=== PATIENT | female | born 1945 | race Caucasian/White ===

== ENCOUNTER 2019-10-07 07:56 | Outpatient (CLI) | payer MEDICARE, OTHER, SELFPAY ==
--- NOTE | 2019-10-18 11:33 | SLEEP_ITS ---
Home Sleep Test DATE OF STUDY: 10/07/2019 ORDERING PHYSICIAN: Dr. Onel March. REASON FOR THE STUDY: Excessive daytime sleepiness with hypertension, snoring. HISTORY: This patient is a 74-year-old female, 5 feet 7 inches tall, weighing 254 pounds with a body mass index of 39.7. She did not complete a sleep survey. Reviewing Dr. March note indicates that the patient has multiple medical issues, including hypertension and depression. She has loud snoring and is sleepy during the daytime. The specifics of her sleep history are not available. MEDICAL COMORBIDITIES: Hypertension, essential tremor, hyperlipidemia, chronic depression, coronary artery disease, abnormal fasting glucose, chronic neck pain, chronic low back pain, fibromyalgia with limited mobility. MEDICATIONS: 1. Lyrica. 2. Cymbalta. 3. Previous medication list not available. HABITS: Never smoked tobacco. DESCRIPTION OF THE STUDY: On the [place] Sleepiness Scale, she has not completed it. This was conducted as an unattended type 3 home sleep test using 4-channel monitoring including respiratory effort channel, snoring channel, oxygen desaturation channel, and heart rate channel. The study was scored using CMS guidelines. Duration of the study was 8 hours 3 minutes. The apnea-hypopnea index is 40.8, elevated. Oxygen desaturation index is 31.5. Minimum saturation 45%. The mean saturation for the study was 93%. She had 178 apneas, the majority were obstructive, 84% or 149 apneas. 29 apneas were central or 16%. She had 150 hypopneas and 148 snoring events. She desaturated 246 times and spent 16 minutes or 3% of the time less than 88% saturation. Heart rate ranged from 48 to 197, that is probably spurious. IMPRESSION: This home sleep test shows evidence of severe obstructive sleep apnea syndrome G47.33, mainly obstructive events with frequent snoring, desaturation and tachycardia. She remained less than 88% saturation for 16 minutes, which was 3% of the study. This patient should have a CPAP titration. It would also be beneficial if she completed the survey. Reviewing Dr. March note, it does indicate that the patient has a history of sleep apnea, uses CPAP every night and has been diagnosed for over 20 years. She needs a full face mask. She has gained 20 pounds in the last year. She sleeps 12-14 hours per day and still feels sleepy. She does have some central apneas. She has multiple medical comorbidities and a low average saturation of 93%. She may benefit from a CPAP titration rather than auto titrating equipment. TIM CAMERON M.D. NC MACHINIST NC MACHINIST D I MT: Simin
== END 2019-10-07 07:57 | disposition home or self-care (01) ==
LOC: ANHCSM 07:59
PROVIDERS: PCP Family Medicine; Visit Provider Family Medicine
DX: G47.33 Obstructive sleep apnea (adult) (pediatric) (principal)
CPT/HCPCS: 95806

== ENCOUNTER 2020-04-07 00:42 | Outpatient (CLI) | payer MEDICARE, OTHER, SELFPAY ==
[2020-04-08 13:40] LABS: SARS-CoV-2 RNA PCR Negative
== END 2020-04-07 00:43 | disposition home or self-care (01) ==
LOC: ANHCOVIDDT 00:43
PROVIDERS: PCP Family Medicine; Visit Provider Internal Medicine Critical Care Medicine
DX: Z01.812 Encounter for preprocedural laboratory examination (principal); Z20.828 Contact with and (suspected) exposure to other viral communicable diseases
CPT/HCPCS: 87635; C9803; U0003

== ENCOUNTER 2020-04-10 07:46 | Outpatient (CLI) | payer MEDICARE, OTHER, SELFPAY ==
--- NOTE | 2020-04-27 01:11 | SLEEP_ITS ---
CPAP TITRATION DATE OF STUDY: 04/10/2020 ORDERING PHYSICIAN: Onel March MD REASON FOR THE STUDY: Obstructive sleep apnea. HISTORY: This patient is a 74-year-old female, 67 inches tall, 230 pounds with a body mass index of 36. On October 07, 2019, she had a home sleep test showing severe obstructive sleep apnea syndrome with an apnea-hypopnea index of 40.8, profound desaturation to 45% with loud snoring. She had a saturation of less than 88% for 16 minutes. She gives a history of sleep apnea and has used a machine for many years. She constantly snores and it is frequently loud enough that others complain about it. She does not awaken at night with heartburn, belching, or coughing. She occasionally has trouble sleeping with a cold, rarely wakes up gasping for breath at night. She frequently has breathing problems at night observed by others, frequently sweats at night. She does not notice her heart pounding or beating irregularly at night. She rarely falls asleep during the day. She does not fall asleep involuntarily, while driving or during physical effort. She does not have loss of muscle tone with strong emotion. She rarely has daytime difficulties due to excessive sleepiness. She does not feel paralyzed on waking or falling asleep. She frequently has vivid dreamlike scenes upon awakening or falling asleep. She is never afraid to go to sleep. She rarely has nightmares, occasionally remembers her dreams. She constantly has racing thoughts. She does not feel sad, depressed, or anxious, but she does have fibromyalgia and this gives her muscle discomfort. She rarely notices parts of her body jerking and she never kicks at night. She rarely has crawly achy feelings in her legs. Does not have leg pain at night and does not have morning jaw pain. She never grinds her teeth at night. She constantly is bothered by pain during the day. She constantly wakes up feeling stiff in the morning with sore achy muscles and pain in the neck and spine. She has 6 rods in her back. She has short-term memory loss, tremors. Bedtime is between midnight and 2 a.m., falling asleep within 20-30 minutes, waking up at a variable time depending on when she goes to sleep, but usually around 10 a.m. She does wake at night to go to the bathroom. She does not take naps. She feels better in the morning than other times of day. MEDICAL COMORBIDITIES: Hyperlipidemia, depression, fibromyalgia, diabetes mellitus, hypertension, essential tremors, acid reflux. MEDICATIONS: 1. Lipitor 40 mg a day. 2. Cymbalta 60 mg 2 tablets daily. 3. Pregabalin 75 mg b.i.d. 4. Propranolol ER 80 mg daily. 5. Myorisan 30 mg b.i.d. 6. Accutane 30 mg every other day. 7. Metformin XR 500 mg 2 tablets b.i.d. 8. Telmisartan/hydrochlorothiazide 12.5/80 mg 1 daily. 9. Rosuvastatin 20 mg a day. 10. Medical marijuana. 11. Zerz-mgs-waxueiq baby aspirin. 12. Eye drops. 13. Vitamin D3. 14. Vitamin B12. HABITS: Quit tobacco years ago. Caffeine, 1 cup a day. Alcohol socially. No recreational drugs, but she does use medical marijuana. DESCRIPTION OF THE STUDY: On the [place] Sleepiness Scale, the score is 13. This was conducted as a full-night CPAP titration using the [place] multiple channel system including EOG, EEG, submental EMG, EKG, nasal and oral airflow using thermistors and nasal pressure sensors, chest and abdominal belts, body position data and pulse oximetry. This study was scored using [facility] guidelines. The duration of the study was 405.1 minutes. The sleep time was 357.2 minutes. Sleep efficiency was 88.2%. Sleep latency was 29.4 minutes. She had no REM. She had 17 awakenings. She spent 4.5% of the study awake after sleep onset. Sleep architecture showed 4.5% stage I sleep, 90.6% sta
== END 2020-04-10 07:47 | disposition home or self-care (01) ==
LOC: ANHCSM 07:47
PROVIDERS: PCP Family Medicine; Visit Provider Family Medicine
DX: G47.33 Obstructive sleep apnea (adult) (pediatric) (principal)
CPT/HCPCS: 95811

== ENCOUNTER 2020-05-09 00:16 | Outpatient (CLI) | payer MEDICARE, OTHER, SELFPAY ==
[2020-05-09 19:00] LABS: SARS-CoV-2 RNA PCR Negative
== END 2020-05-09 00:17 | disposition home or self-care (01) ==
LOC: ANHCOVIDDT 00:16
PROVIDERS: PCP Family Medicine; Visit Provider Internal Medicine Gastroenterology
DX: Z01.812 Encounter for preprocedural laboratory examination (principal); Z20.828 Contact with and (suspected) exposure to other viral communicable diseases
CPT/HCPCS: 87635; C9803; U0003

== ENCOUNTER 2020-05-11 00:46 | Day surgery (SDC) | payer MEDICARE, OTHER, SELFPAY ==
[2020-05-03 15:23] VITALS: BMI 36.2
--- NOTE | 2020-05-11 07:57 | PM.IMHP ---
H&P: HPI History of Present Illness Date/Time: 05/11/20 07:57 Chief complaint: polyp of colon Narrative: Reason for visit is colonoscopy. This very pleasant lady seen in consultation at the request of the primary physician. Impression: Screening and surveillance colonoscopy. The patient has history adenomatous colon polyps. Acne vulgaris. HTN. Obesity. CLYDE. DM. HLD. Fibromyalgia. AAA. Depression. Essential tremor. Vitamin-D deficiency. Vitamin B12 deficiency. Recommendation: Colonoscopy. History: This very pleasant lady's negative GI review systems. She is here for screening and surveillance colonoscopy. She has history adenomatous colon polyps. Patient does have history of fibromyalgia and essential tremor. Tremor Affects extremities and her speech. Physical examination: General: very pleasant patient in no acute distress. HEENT: Head was normocephalic sclerae is clear mouth without masses neck was supple. Heart: Rate rhythm regular without S3 or S4. Lungs: CTA. Abdomen: Soft with no guarding or rigidity. Bowel sounds were active. Neurologic: Cranial nerves 2 through 12 intact. No focal defects. No clonus.Patient has an obvious essential tremor. Speech is mildly dysarthric. Musculoskeletal system: Revealed no joint tenderness or swelling no muscle atrophy. Extremities: Reveal no significant edema. Skin: Warm and dry with normal turgor. Mental status: intact. Patient is alert and oriented. Review of Systems Review of Systems: All systems reviewed & are unremarkable except as noted in HPI and below PMFSH Past Medical History Medical History (Updated 04/25/20 @ 07:40 by Onel March MD) Abdominal aortic aneurysm (AAA) 3.0 cm to 5.0 cm in diameter in female Acne vulgaris Breast cancer screening by mammogram Chronic depression Chronic low back pain Chronic neck pain Controlled diabetes mellitus without complication, without long-term current use of insulin Coronary artery disease without angina pectoris Depression Encounter for osteoporosis screening in asymptomatic postmenopausal patient Essential (primary) hypertension Essential tremor Fibromyalgia Fibromyalgia Hallux valgus, acquired, bilateral Hammertoes of both feet High cholesterol Hx of retinal detachment Left eye 2011 and 2012 Hypertension Mixed hyperlipidemia Jimenez's neuroma of both feet 1981 [place], [place] Osteopenia after menopause Polyp of colon Vitamin B12 deficiency anemia Vitamin D deficiency, unspecified Surgical History Surgical History (Updated 08/05/19 @ 13:43 by Sandeep Shannon [facility]) History of ankle surgery Broken Ankle [address] [facility] [address] Ho History of back surgery Hx of cataract surgery Left eye 2012 Right Eye 2011, 2012 Hx of cholecystectomy 1996 [place] Hx of cornea transplant Left eye partial Cornea transplant 2014 Hx of hammer toe correction 2007 [facility] Hx of total knee replacement Left & Right Knee June 2016 & August 2016 [facility]. [place], Dr. Gavin Botello Family History Family History (Updated 08/05/19 @ 13:32 by Sandeep Shannon CMA) Father Heart disease Other Diabetes mellitus Hypertension Social History Social History (Updated 08/05/19 @ 13:33 by Sandeep hSannon CMA) Smoking status: Never smoker Alcohol intake: current Substance use: never Substance use type: marijuana Living arrangements: with family Spiritual care concerns: No Meds Home Medications and Allergies Home Medications Medication Instructions Recorded Confirmed Type atorvastatin 40 mg tablet 40 mg PO DAILY #30 tablet 06/15/19 05/03/20 Rx aspirin 325 mg tablet,delayed 325 mg PO DAILY 08/05/19 05/03/20 History release cholecalciferol (vitamin D3) 25 1,000 unit PO DAILY 08/05/19 05/03/20 History mcg (1,000 unit) tablet doxycycline hyclate 50 mg tablet 50 mg PO BID tablet
[2020-05-11 08:09] VITALS: BP 171/86; PULSE 63; RESP 20; TEMP 35.9; O2SAT 100; BMI 34.7
[2020-05-11] MEDS: LACTATED RINGERS 1,000 ML 150 ML IV CONT (08:13)
--- NOTE | 2020-05-11 08:15 | WPDANESEPPF ---
Anes - Initial Pre Proc Eval Procedure: Operation Date: 05/11/20 08:30 Proposed Procedures p Colonoscopy - Charles Crum DO Date/Time: 05/11/20 08:15 Surgeon: Charles Crum DO Pre Op Diagnosis: polyp of colon Patient Data Age: 74 Gender: F Height: 5 ft 7 in Weight: 100.6 kg Last Vital Signs Temp 35.9 C L 05/11/20 08:09 Pulse 63 05/11/20 08:09 Resp 20 05/11/20 08:09 BP 171/86 H 05/11/20 08:09 Pulse Ox 100 05/11/20 08:09 Allergies Allergy/AdvReac Type Severity Reaction Status Date / Time Iodinated Contrast Media Allergy Severe Rash Verified 05/11/20 08:07 Contrast Media Allergy Severe Rash Uncoded 05/11/20 08:07 Home Medications Medication Instructions Recorded Confirmed Type atorvastatin 40 mg tablet 40 mg PO DAILY #30 tablet 06/15/19 05/03/20 Rx aspirin 325 mg tablet,delayed 325 mg PO DAILY 08/05/19 05/03/20 History release cholecalciferol (vitamin D3) 25 1,000 unit PO DAILY 08/05/19 05/03/20 History mcg (1,000 unit) tablet doxycycline hyclate 50 mg tablet 50 mg PO BID tablet 08/05/19 05/03/20 History omega-3 fatty acids 1,000 mg 1,000 mg PO DAILY 08/05/19 05/03/20 History capsule prednisolone acetate 1 % eye 1 drop EACH EYE Q12H 08/05/19 05/03/20 History drops,suspension vitamin B complex 1 tablet PO DAILY 08/05/19 05/03/20 History metformin 500 mg tablet,extended 1,000 mg PO BID #360 tablet 10/18/19 05/03/20 Rx release 24 hr propranolol 80 mg capsule,extended 80 mg PO DAILY #90 cap 10/18/19 05/03/20 Rx release 24 hr pregabalin 75 mg capsule 75 mg PO BID #180 cap 11/23/19 05/03/20 Rx Medical cannabis 1 dose BYMOUTH PRN 12/09/19 12/09/19 History duloxetine 60 mg capsule,delayed 60 mg PO BID #180 cap 04/11/20 05/03/20 Rx release isotretinoin 10 mg capsule 5 mg PO . Every other day cap 04/11/20 05/03/20 History telmisartan 80 1 tablet PO DAILY #90 tablet 04/11/20 05/03/20 Rx mg-hydrochlorothiazide 12.5 mg tablet Patient hx anesthesia problems: none Family hx anesthesia problems: none PMFSH Past Medical History Medical History Abdominal aortic aneurysm (AAA) 3.0 cm to 5.0 cm in diameter in female Acne vulgaris Breast cancer screening by mammogram Chronic depression Chronic low back pain Chronic neck pain Controlled diabetes mellitus without complication, without long-term current use of insulin Coronary artery disease without angina pectoris Depression Encounter for osteoporosis screening in asymptomatic postmenopausal patient Essential (primary) hypertension Essential tremor Fibromyalgia Fibromyalgia Hallux valgus, acquired, bilateral Hammertoes of both feet High cholesterol Hx of retinal detachment Left eye 2011 and 2012 Hypertension Mixed hyperlipidemia Jimenez's neuroma of both feet 1981 [place], [place] Osteopenia after menopause Polyp of colon Vitamin B12 deficiency anemia Vitamin D deficiency, unspecified Surgical History Surgical History History of ankle surgery Broken Ankle [address] [facility] [address] Ho History of back surgery Hx of cataract surgery Left eye 2012 Right Eye 2011, 2012 Hx of cholecystectomy 1996 [place] Hx of cornea transplant Left eye partial Cornea transplant 2014 Hx of hammer toe correction 2007 [facility] Hx of total knee replacement Left & Right Knee June 2016 & August 2016 [facility], Dr. Gavin Botello Family History Family History Father Heart disease Other Diabetes mellitus Hypertension Social History Social History Smoking status: Never smoker Alcohol intake: current Substance use: never Substance use type: marijuana Living arrangements: with family Spiritual care concerns: No Anes - Eval Fi
[2020-05-11 08:30] LABS: Glucose Point of Care 109 (65-105)
[2020-05-11 09:08] VITALS: BP 123/62; PULSE 60; RESP 21; O2SAT 100
[2020-05-11 09:18] VITALS: BP 141/75; PULSE 56; RESP 22; O2SAT 100
[2020-05-11 09:28] VITALS: BP 166/92; PULSE 53; RESP 15; O2SAT 100
== END 2020-05-11 09:55 | disposition home or self-care (01) ==
PROVIDERS: PCP Family Medicine; Visit Provider Internal Medicine Gastroenterology
PROC: 0DJD8ZZ Inspection of Lower Intestinal Tract, Via Natural or Artificial Opening Endoscopic (ICD-10-PCS; CPT 45378; principal; 2020-05-11 08:30)
DX: Z12.11 Encounter for screening for malignant neoplasm of colon (principal); D12.0 Benign neoplasm of cecum; D12.3 Benign neoplasm of transverse colon; D12.2 Benign neoplasm of ascending colon; K62.1 Rectal polyp; K57.30 Diverticulosis of large intestine without perforation or abscess without bleeding; K64.8 Other hemorrhoids; I25.10 Atherosclerotic heart disease of native coronary artery without angina pectoris; I10 Essential (primary) hypertension; E11.9 Type 2 diabetes mellitus without complications; F32.9 Major depressive disorder, single episode, unspecified; I71.4 Abdominal aortic aneurysm, without rupture; M79.7 Fibromyalgia; E78.00 Pure hypercholesterolemia, unspecified; E78.2 Mixed hyperlipidemia; E55.9 Vitamin D deficiency, unspecified; D51.9 Vitamin B12 deficiency anemia, unspecified; G47.33 Obstructive sleep apnea (adult) (pediatric); G25.0 Essential tremor; E66.9 Obesity, unspecified; Z68.34 Body mass index [BMI] 34.0-34.9, adult; Z79.82 Long term (current) use of aspirin; Z79.84 Long term (current) use of oral hypoglycemic drugs
CPT/HCPCS: 45380; 45385; 88305; J2704; J7120

== ENCOUNTER 2020-05-26 07:48 | Outpatient (CLI) | payer MEDICARE, OTHER, SELFPAY ==
--- NOTE | ~2020-05-26 | DEXA_ITS ---
Bone Density Report Name: Keiry Anderson Age: 75 Sex: Female Ethnicity: White Date of : 1945 Indication: postmenopausal; prior fracture; Referring Provider: EULALIA SANTIAGO Study: Bone densitometry was performed. Exam Date: May 26, 2020 Accession number: [id number] Bone Density: Region BMD T-score Z-score Classification AP Spine (L1, L2) 1.234 2.3 4.5 Normal Femoral Neck (Left) 0.879 0.3 2.2 Normal Total Hip (Left) 1.005 0.5 2.2 Normal Total Hip Bilateral Avg 0.994 0.4 2.1 Normal Femoral Neck (Right) 0.936 0.8 2.8 Normal Total Hip (Right) 0.982 0.3 2.0 Normal World Health Organization criteria for BMD impression classify patients as: Normal (T-score at or above -1.0), Osteopenia (T-score between -1.0 and -2.5), or Osteoporosis (T-score at or below -2.5). 10-year Fracture Risk: FRAX not reported because: All T-scores for Spine Total, Hip Total, Femoral Neck at or above -1.0 Previous Exams: Region Exam Age BMD T-score BMD Change BMD Change Date g/cm2 vs Baseline vs Previous AP Spine(L1, L2) 05/26/2020 75 1.234 2.3 0.227(22.6%)# 0.223(22.0%)# 04/04/2006 60 1.011 0.3 0.004(0.4%) 0.004(0.4%) 03/03/2002 56 1.007 0.3 Total Hip(Left) 05/26/2020 75 1.005 0.5 -0.039(-3.7%)# 0.002(0.2%)# 04/04/2006 60 1.002 0.5 -0.042(-4.0%)* -0.042(-4.0%)* 03/03/2002 56 1.044 0.8 Total Hip(Right) 05/26/2020 75 0.982 0.3 -0.097(-9.0%)# -0.069(-6.5%)# 04/04/2006 60 1.051 0.9 -0.029(-2.7%)* -0.029(-2.7%)* 03/03/2002 56 1.079 1.1 *Denotes significance at 95% confidence level, LSC for AP Spine = 0.022 g/cm2, LSC for Total Hip = 0.027 g/cm2 Clinical Information Provided by Patient: Has had a low trauma fracture Has used the following medications: Vitamin D, Calcium Patient maximum height was 66 Menopause Age: 57 Drinks caffeinated beverages Onset of menses at age 12 Number of children 0 Impression: The patient has normal bone mass. The patient has risk factors, including: previous fracture. No significant bone loss was observed. Discussion: BONE DENSITY IS ABOVE THE MINIMUM DESIRABLE LEVEL AT ALL SKELETAL SITES TESTED. This patient?s bone mineral density is above the minimum desirable level (T-score -1.0 or better) at all sites measured. The patient should follow a healthful lifestyle (good nutrition with adequate calcium and vitamin D, and appropriate weight-bearing exercise). Follow-
== END 2020-05-26 07:49 | disposition home or self-care (01) ==
LOC: ANHIMG 07:49
PROVIDERS: PCP Family Medicine; Visit Provider Family Medicine
DX: M81.0 Age-related osteoporosis without current pathological fracture (principal)
CPT/HCPCS: 77080

== ENCOUNTER 2021-01-26 09:49 | Emergency (ER) | payer MEDICARE, OTHER, SELFPAY ==
[2021-01-26] VITALS (11 sets, daily range): BP systolic 125–181; BP diastolic 57–97; PULSE 56–79; RESP 12–21; TEMP 36.1; O2SAT 85–100
--- NOTE | ~2021-01-26 | CT_ITS ---
EXAMINATION: CT lumbar spine wo con DATE: 01/26/2021 11:07 INDICATION: Posterior fusion procedure. Altered mental status. TECHNIQUE: Computed tomography (CT) of the lumbar spine was performed without intravenous contrast. A utomated exposure control and iterative reconstruction technique were employed. The dose-length produ ct was 2043.00 mGy-cm. COMPARISON: None FINDINGS: There is 10 degrees levoscoliosis of lumbar spine. There is 3 mm anterolisthesis of L4 on L 5. There are changes of posterior fusion procedure from L3 to L5 with pedicle screws. There are garcia es of L3 laminotomy and L4 laminectomy. Vertebral body heights are normal. There is mildly decreased disc height at L2-L3 and severely decreased disc height at L3-L4 and L4-L5. The following disc levels are specifically discussed: L1-L2: The disc is bulging. There is severe bilateral facet joint osteoarthritis. There is mild left neural foraminal stenosis. There is mild central canal stenosis. L2-L3: The disc is bulging. There is severe bilateral facet joint osteoarthritis. There is mild bilat eral neural foraminal stenosis. There is mild central canal stenosis. L3-L4: The disc is bulging. There is mild bilateral facet joint hypertrophy. There is mild bilateral neural foraminal stenosis. There is mild central canal stenosis with posterior decompression. L4-L5: The disc is bulging. There is moderate bilateral facet joint hypertrophy. There is moderate bi lateral neural foraminal stenosis. There is mild central canal stenosis with posterior decompression. L5-S1: The disc does not extend beyond the endplate margin. There is severe bilateral facet joint ost eoarthritis. There is mild bilateral neural foraminal stenosis. There is no central canal stenosis. IMPRESSION: 1. Severe lumbar spondylosis. 2. Lumbar levoscoliosis. 3. Recent posterior fusion procedure from L3 to L5. Reviewed, dictated and finalized at location A.
--- NOTE | ~2021-01-26 | XR_ITS ---
EXAMINATION: XR chest 1V INDICATION: Altered mental status TECHNIQUE: AP view of the chest is obtained. COMPARISON: 04/26/2008 FINDINGS: There are questionable nodules of the left lung base. No pleural effusion or pneumothorax i s identified. Cardiomegaly is noted. There is moderate osteoarthritis of the right glenohumeral joint . Cholecystectomy clips are noted in the right upper quadrant. IMPRESSION: 1. Possible nodules of the left lung base. Follow-up with CT of the chest is recommended. Reviewed, dictated and finalized at location B. IMPRESSION: 1. Possible nodules of the left lung base. Follow-up with CT of the chest is re commended.
--- NOTE | ~2021-01-26 | CT_ITS ---
EXAMINATION: CT brain wo con INDICATION: Altered mental status COMPARISON: None TECHNIQUE: Standard unenhanced head CT. The dose-length product (DLP) was 1194.27 mGy-cm. The mA was adjusted according to patient size. Iterative reconstruction technique was employed. FINDINGS: Streak and motion artifact limit evaluation of the skull base. There is no acute intraparen chymal hemorrhage. No evidence of mass lesion. No evidence of acute infarction. There is mild periven tricular and subcortical hypodensity probably related to small vessel ischemic disease. There is mild prominence of the sulci and ventricles related to cerebral atrophy. Intracranial calcified cerebral atherosclerosis is noted. There are no extra-axial collections. There is no mass effect or midline sh ift. Changes in the globes are likely from ocular lens surgery. The visualized sinuses and mastoid ai r cells are well aerated. IMPRESSION: 1. No acute intracranial abnormality. 2. Age related findings. Reviewed, dictated and finalized at location B.
--- NOTE | 2021-01-26 10:01 | ECG_ITS ---
Measurements Intervals [place] Rate: 58 P: AK: 0 QRS: 7 QRSD: 105 T: -3 QT: 442 QTc: 436 Interpretive Statements ATRIAL FLUTTER/TACHYCARDIA WITH SLOW VENTRICULAR RESPONSE BASELINE ARTIFACT- I, II, III, AVR, AVL, AVF, V3-V4 ABNORMAL ECG Electronically Signed On 01-26-2021 13:02:15 CDT by Flex Christopher D.O.
[2021-01-26] MEDS: ONDANSETRON INJ 4 MG/2 ML VIAL 8 MG IV PUSH (10:19)
[2021-01-26] MEDS: HYDROmorphone HCL INJ (*CRX) 1 MG/ML SYR IV PUSH (10:19)
[2021-01-26] MEDS: SODIUM CHLORIDE 0.9% IV 1,000 ML 999 ML IV CONT (10:39)
--- NOTE | 2021-01-26 10:42 | PC.NURSE ---
Pt to XRAY and CT via stretcher.
[2021-01-26 10:49] LABS: Basophils Percent Auto 0.3 % (0.2-1.2); Eosinophils Absolute Auto 0.4 K/mm3 (0-0.3); Eosinophils Percent Auto 4.3 % (0-4.4); Hematocrit 40.1 % (37.0-47.0); Hemoglobin 13.2 g/dL (12.0-15.0); Immature Granulocyte Absolute 0.02 K/mm3 (0.00-0.031); Immature Granulocyte Percent A 0.2 % (0-0.5); Lymphocytes Absolute Auto 2.19 K/mm3 (0.9-3.2); Lymphocytes Percent Auto 25.2 % (18.3-44.2); Mean Corpuscular HGB Conc 32.9 g/dl (32-36); Mean Corpuscular Hemoglobin 28.9 pg (26-34); Mean Corpuscular Volume 87.9 fl (80-100); Mean Platelet Volume 10.5 fl (7.4-10.4); Monocytes Absolute Auto 0.4 K/mm3 (0.1-0.6); Monocytes Percent Auto 5.1 % (2.6-8.5); Neutrophils Absolute Auto 5.6 K/mm3 (1.3-6.7); Neutrophils Percent Auto 64.9 % (45.5-73.1); Platelet Count Result 245 k/mm3 (150-375); Red Blood Count 4.56 M/mm3 (4.2-5.4); Red Cell Distribution Width 14.1 % (11.5-14.5); White Blood Count 8.7 K/mm3 (4.5-10.0)
[2021-01-26 10:53] LABS: Add Urine Microscopic? YES; Appearance Urine Clear (Clear); Bilirubin Urine Negative (Negative); Blood Urine Negative (Negative); Color Urine Yellow (Yellow); Glucose Urine UA Negative (Negative); Ketones Urine Trace mg/dL (Negative); Leukocyte Esterase Ur Negative LEU/UL (Negative); Nitrate Urine Negative (Negative); Protein Urine 1+ mg/dL (Negative); RBC Urine 0-2 /hpf (0-2); Specific Grav Ur 1.015 (1.001-1.035); Squamous Epithelial Cell Urine Rare /hpf (Few); Urobilinogen Urine Negative mg/dL (<2.0); WBC Urine 0-3 /hpf
[2021-01-26 10:59] LABS: Lactic Acid Reflex 2.4 mmol/L (0.7-2.1)
[2021-01-26 11:00] LABS: Alanine Aminotransferase 40 U/L (4-35); Albumin Level 3.7 g/dL (3.5-5.1); Alkaline Phosphatase 132 U/L (38-126); Anion Gap 10 mmol/L (8-16); Aspartate Amino Transferase 42 U/L (14-36); Bilirubin,Total 1.3 mg/dL (0.2-1.3); Blood Urea Nitrogen 13 mg/dL (7-17); Calcium 9.1 mg/dL (8.4-10.2); Carbon Dioxide 25 mmol/L (22-30); Chloride 105 mmol/L (98-107); Estimated Glomerular Filt Rate > 60; Glucose 101 mg/dL (65-105); Potassium 3.4 mmol/L (3.4-5.0); Sodium 140 mmol/L (137-145)
[2021-01-26 11:04] LABS: CRP 5.2 mg/dL (<1.0)
--- NOTE | 2021-01-26 11:16 | ED.GENADULT ---
HPI - General Adult General Chief complaint: Altered Mental Status Stated complaint: AMS Time Seen by Provider: 01/26/21 10:09 Source: patient, family, EMS and RN notes reviewed Mode of arrival: EMS Limitations: altered mental status History of Present Illness HPI narrative: Patient is a 75-year-old female who presents to emergency department for evaluation of altered mentation patient had lumbar surgery on Friday by [facility]. Azam Romeo at [facility]. Patient was discharged on Friday went home yesterday began to have confusion and altered mentation patient today has had much worsening condition is completely confused and moaning and unable to follow commands or answer questions appropriately was sent in by EMS to [place] for evaluation. Patient has not had any fall injuries or trauma according to since being discharged from the hospital. . Related Data Home Medications Medication Instructions Recorded Confirmed aspirin 325 mg tablet,delayed 325 mg PO DAILY 08/05/19 12/20/20 release cholecalciferol (vitamin D3) 25 1,000 unit PO DAILY 08/05/19 12/20/20 mcg (1,000 unit) tablet omega-3 fatty acids 1,000 mg 1,000 mg PO DAILY 08/05/19 12/20/20 capsule prednisolone acetate 1 % eye 1 drop EACH EYE Q12H 08/05/19 12/20/20 drops,suspension vitamin B complex 1 tablet PO DAILY 08/05/19 12/20/20 Medical cannabis 1 dose BYMOUTH PRN 12/09/19 12/20/20 Allergies Allergy/AdvReac Type Severity Reaction Status Date / Time Iodinated Contrast Media Allergy Severe Rash Verified 05/11/20 08:07 Contrast Media Allergy Severe Rash Uncoded 05/11/20 08:07 Review of Systems Review of Systems: ROS unobtainable: Yes unobtainable due to medical condition [facility] Past Medical History Medical History Abdominal aortic aneurysm (AAA) 3.0 cm to 5.0 cm in diameter in female Acne vulgaris Breast cancer screening by mammogram Chronic anxiety Chronic depression Chronic low back pain Chronic neck pain Controlled diabetes mellitus without complication, without long-term current use of insulin Coronary artery disease without angina pectoris Depression Encounter for osteoporosis screening in asymptomatic postmenopausal patient Essential (primary) hypertension Essential tremor Fibromyalgia Fibromyalgia Hallux valgus, acquired, bilateral Hammertoes of both feet High cholesterol Hx of retinal detachment Left eye 2011 and 2012 Hypertension Mixed hyperlipidemia Jimenez's neuroma of both feet 1981 [place], [place] Osteopenia after menopause Polyp of colon Vitamin B12 deficiency anemia Vitamin D deficiency, unspecified Surgical History Surgical History History of ankle surgery Broken Ankle [facility] Dr. Ho History of back surgery Hx of cataract surgery Left eye 2012 Right Eye 2011, 2012 Hx of cholecystectomy 1996 [place] Hx of cornea transplant Left eye partial Cornea transplant 2014 Hx of hammer toe correction 2007 [facility] Hx of total knee replacement Left & Right Knee June 2016 & August 2016 [facility], Dr. Gavin Botello Family History Family History Father Heart disease Other Diabetes mellitus Hypertension Social History Social History Smoking status: Never smoker Alcohol intake: current Substance use: never Substance use type: marijuana Gender identity (if verbalized by the patient): Female Spiritual care concerns: No Exam Narrative: Exam Narrative: GENERAL: Well-appearing, obese, uncomfortable and in no acute distress. HEAD: Normocephalic, atraumatic. EYES: PERRLA and EOMI. ENT: Nares clear, no rhinorrhea or epistaxis. Mucous membranes dry NECK: Supple. No adenopathy or masses. No carotid bruits or JVD JOSELYN
[2021-01-26 11:40] LABS: Erythrocyte Sedimentation Rate 72 mm/hr (0-20)
[2021-01-26] MEDS: LORazepam INJ (*CRX) 2 MG/ML VIAL 0.5 MG IV PUSH ×2 (11:53→17:13)
[2021-01-26] MEDS: ASPIRIN 325 MG TABLET PO (11:53)
--- NOTE | 2021-01-26 12:02 | PC.NURSE ---
Pt 86% on room air, placed on 2 L NC O2. SAT increased to 95%
[2021-01-26 13:46] LABS: Reflex Lactic Acid Yes or No Add Lactic
[2021-01-26 14:17] LABS: Lactic Acid 1.1 mmol/L (0.7-2.1)
[2021-01-26] MEDS: LACTATED RINGERS 1,000 ML 80 ML IV CONT (15:20)
--- NOTE | 2021-01-26 16:56 | PC.NURSE ---
Called [facility] at [phone], spoke to Floridalma LOCKWOOD and gave report. Pt assigned to Bed 2408. Pt Jayme notified of acceptance to hospital.
--- NOTE | 2021-01-26 17:09 | PC.NURSE ---
Pt becoming restless and trying to get out of bed multiple times. EDP made aware. Per Aníbal Dolan PA-C VORB give 0.5mg Ativan.
== END 2021-01-26 18:11 | disposition short-term general hospital (02) ==
PROVIDERS: Emergency Medicine Emergency Medical Services; Emergency Provider Emergency Medicine; PCP Family Medicine
DX: R41.82 Altered mental status, unspecified (principal); I25.10 Atherosclerotic heart disease of native coronary artery without angina pectoris; E11.9 Type 2 diabetes mellitus without complications; I10 Essential (primary) hypertension; M79.7 Fibromyalgia; E78.00 Pure hypercholesterolemia, unspecified; M85.80 Other specified disorders of bone density and structure, unspecified site; D51.9 Vitamin B12 deficiency anemia, unspecified; E55.9 Vitamin D deficiency, unspecified; F32.9 Major depressive disorder, single episode, unspecified; F41.9 Anxiety disorder, unspecified; Z79.84 Long term (current) use of oral hypoglycemic drugs; Z79.82 Long term (current) use of aspirin; Z98.42 Cataract extraction status, left eye; Z98.41 Cataract extraction status, right eye; Z94.7 Corneal transplant status; Z96.653 Presence of artificial knee joint, bilateral; M47.816 Spondylosis without myelopathy or radiculopathy, lumbar region; Z98.1 Arthrodesis status; R91.8 Other nonspecific abnormal finding of lung field; I48.92 Unspecified atrial flutter; R00.0 Tachycardia, unspecified; Z98.890 Other specified postprocedural states
CPT/HCPCS: 36415; 51701; 70450; 71045; 72131; 80053; 81001; 83605; 85025; 85652; 86140; 93005; 96361; 96374; 96375; 96376; 99284; 99285; A9270; J1170; J2060; J2405; J7030; J7120

== ENCOUNTER 2021-03-19 12:08 | Emergency (ER) | payer MEDICARE, OTHER, SELFPAY ==
[2021-03-19] VITALS (9 sets, daily range): BP systolic 99–140; BP diastolic 52–86; PULSE 51–59; RESP 16–18; TEMP 37.1; O2SAT 96–100
--- NOTE | 2021-03-19 18:09 | ED.RECABL ---
HPI - Recheck/Abnormal Lab/Rx General Chief Complaint: Recheck/Abnormal Lab/Rx Stated Complaint: LOW BP Time Seen by Provider: 03/19/21 17:59 History of Present Illness HPI narrative: 75 yo female presents from home for low blood pressure. Home health reportedly checked her BP and it was 70/40. She reports that she was feeling a bit dizzy at that time. She did not want to come in, but they insisted. Hypotension and all symptoms resolved during her 5 hours in the waiting room. Related Data Home Medications Medication Instructions Recorded Confirmed cholecalciferol (vitamin D3) 25 1,000 unit PO DAILY 08/05/19 12/20/20 mcg (1,000 unit) tablet omega-3 fatty acids 1,000 mg 1,000 mg PO DAILY 08/05/19 12/20/20 capsule prednisolone acetate 1 % eye 1 drop EACH EYE Q12H 08/05/19 12/20/20 drops,suspension vitamin B complex 1 tablet PO DAILY 08/05/19 12/20/20 Medical cannabis 1 dose BYMOUTH PRN 12/09/19 12/20/20 apixaban 5 mg tablet 5 mg PO BID 01/30/21 aspirin 325 mg tablet,delayed 81 mg PO DAILY tablet 01/30/21 release Allergies Allergy/AdvReac Type Severity Reaction Status Date / Time Iodinated Contrast Media Allergy Severe Rash Verified 05/11/20 08:07 Review of Systems Review of Systems: All systems reviewed & are unremarkable except as noted in HPI and below Constitutional: Constitutional: Denies chills and Denies fever(s) ENT: Denies sore throat Cardiovascular: Cardiovascular: Denies chest pain Respiratory: Respiratory: Denies dyspnea Gastrointestinal: Gastrointestinal: Denies abdominal pain, Denies diarrhea, Denies nausea and Denies vomiting Genitourinary: Genitourinary: Denies hematuria and Denies dysuria Neurologic: Reports as per HPI [facility] Past Medical History Medical History Abdominal aortic aneurysm (AAA) 3.0 cm to 5.0 cm in diameter in female Acne vulgaris Breast cancer screening by mammogram Chronic anxiety Chronic atrial fibrillation (01/27/21) Chronic depression Chronic low back pain Chronic neck pain Controlled diabetes mellitus without complication, without long-term current use of insulin Coronary artery disease without angina pectoris Depression Encounter for osteoporosis screening in asymptomatic postmenopausal patient Essential (primary) hypertension Essential tremor Fibromyalgia Fibromyalgia Hallux valgus, acquired, bilateral Hammertoes of both feet High cholesterol Hx of retinal detachment Left eye 2011 and 2012 Hypertension Mixed hyperlipidemia Jimenez's neuroma of both feet 1981 [place], [place] Osteopenia after menopause Polyp of colon Vitamin B12 deficiency anemia Vitamin D deficiency, unspecified Surgical History Surgical History History of ankle surgery Broken Ankle [address] [facility] [address] Ho History of back surgery Hx of cataract surgery Left eye 2012 Right Eye 2011, 2012 Hx of cholecystectomy 1996 [place] Hx of cornea transplant Left eye partial Cornea transplant 2014 Hx of hammer toe correction 2007 [facility] Hx of total knee replacement Left & Right Knee June 2016 & August 2016 [facility], [address] Gavin Botello Family History Family History Father Heart disease Other Diabetes mellitus Hypertension Social History Social History Smoking status: Never smoker Alcohol intake: current Alcohol use details: Wine or Gin but rarely Substance use: never Substance use type: marijuana Gender identity (if verbalized by the patient): Female Spiritual care concerns: No Exam Const: General: no acute distress and alert Orientation/consciousness: patient oriented x3 HENMT: Head: normal to inspection Neck: Neck: normal visual inspection Resp:
== END 2021-03-19 18:45 | disposition home or self-care (01) ==
PROVIDERS: Emergency Provider Emergency Medicine; PCP Family Medicine
DX: I95.9 Hypotension, unspecified (principal); I48.20 Chronic atrial fibrillation, unspecified; Z79.01 Long term (current) use of anticoagulants; E11.9 Type 2 diabetes mellitus without complications; I25.10 Atherosclerotic heart disease of native coronary artery without angina pectoris; I10 Essential (primary) hypertension; M79.7 Fibromyalgia; E78.2 Mixed hyperlipidemia; M85.80 Other specified disorders of bone density and structure, unspecified site; Z86.010 Personal history of colon polyps; D51.9 Vitamin B12 deficiency anemia, unspecified; E55.9 Vitamin D deficiency, unspecified; F32.9 Major depressive disorder, single episode, unspecified
CPT/HCPCS: 99282

== ENCOUNTER 2022-01-16 12:20 | Emergency (ER) | payer MEDICARE, OTHER, SELFPAY ==
--- NOTE | ~2022-01-16 | CT_ITS ---
EXAMINATION: CT abdomen pelvis wo con DATE: 01/16/2022 14:43 INDICATION: Abdominal pain, vomiting TECHNIQUE: Computed tomography (CT) of the abdomen and pelvis was performed without intravenous contr ast. Automated exposure control and iterative reconstruction technique were employed. Exam dose: 102 8.17 mGy-cm total exam DLP. COMPARISON: 03/15/2014 CTA thorax abdomen pelvis FINDINGS: New mildly irregular 1 cm nodule in the posterior left lung base, left lower lobe, not pres ent on 03/15/2014. Consider PET/CT imaging for further evaluation. Normal heart size. No pericardial or pleural effusion. Status post cholecystectomy. The liver, spleen, pancreas and adrenal glands are unremarkable. No bile duct or pancreatic duct dilatation. 8 mm exophytic lateral apical left renal mass with attenuation of 60 Hounsfield units. Anterior left parapelvic approximately 1.4 cm renal cyst. 7 mm exophytic cyst at the lateral mid left kidney. No other renal mass lesion is evident. No urinary tract calculus or hydroureteronephrosis. There is atherosclerotic calcification of the abdominal aorta but no aneurysm. No intraperitoneal or retroperitoneal or pelvic mass lesion or adenopathy or ascites. The uterus is unremarkable except for a densely calcified left fundic fibroadenoma. No adnexal mass l esion. No abnormal pelvic fluid collection. The urinary bladder is relatively evacuated. Normal appendix. Colon diverticulosis involving primarily the sigmoid region; no CT evidence of diver ticulitis. No bowel obstruction or intraperitoneal free air. There is diffuse idiopathic skeletal hyperostosis of the thoracolumbar spine. Status post posterior spinal fusion at L3-5. Bilateral hip osteoarthritis. IMPRESSION: New mildly irregular 1 cm left lower lobe mass since 2013; left lower lobe malignancy is not excluded. Consider PET/CT scan New 8 mm superior pole left renal mass; hypernephroma is not excluded. Status post cholecystectomy Diverticulosis of the colon; no evidence of diverticulitis Normal appendix Reviewed, dictated and finalized at Location A. Reviewed, dictated and finalized at location A. IMPRESSION: New mildly irregular 1 cm left lower lobe mass since 2013; left lo wer lobe malignancy is not excluded. Consider PET/CT scan New 8 mm superior pole left renal mass; hypernephroma is not excluded. Status post cholecystectomy Diverticulosis of the colon; no evidence of diverticulitis Normal appendix
--- NOTE | ~2022-01-16 | XR_ITS ---
EXAMINATION: XR chest 1V portable Exam Date/Time: 01/16/2022 14:30 CDT HISTORY: fever, nausea/vomiting x3 days hx: AAA, afib, htn Comparison: 01/26/2021. RESULT: Lines, tubes, and devices: Electronic device projects over the left chest. Partially visualized lumb ar fusion hardware. Lungs and pleura: Clear. Cardiomediastinal silhouette: Stable cardiomediastinal silhouette. Other: No acute osseous or upper abdominal finding. IMPRESSION: No acute cardiopulmonary process. Reviewed, dictated and finalized at location K.
[2022-01-16 12:36] VITALS: BP 148/97; PULSE 107; RESP 16; O2SAT 100
--- NOTE | 2022-01-16 12:41 | PC.NURSE ---
pt reports she provided a urine specimen at [facility].
[2022-01-16 13:00] LABS: Basophils Absolute Auto 0.1 K/mm3 (0.0-0.1); Basophils Percent Auto 0.6 % (0.2-1.2); Eosinophils Absolute Auto 0.1 K/mm3 (0-0.3); Eosinophils Percent Auto 1.1 % (0-4.4); Hematocrit 47.4 % (37.0-47.0); Hemoglobin 15.7 g/dL (12.0-15.0); Immature Granulocyte Absolute 0.01 K/mm3 (0.00-0.031); Immature Granulocyte Percent A 0.1 % (0-0.5); Lymphocytes Absolute Auto 3.02 K/mm3 (0.9-3.2); Mean Corpuscular HGB Conc 33.1 g/dl (32-36); Mean Corpuscular Volume 90.6 fl (80-100); Mean Platelet Volume 10.4 fl (7.4-10.4); Monocytes Absolute Auto 0.6 K/mm3 (0.1-0.6); Monocytes Percent Auto 6.3 % (2.6-8.5); Neutrophils Absolute Auto 5.1 K/mm3 (1.3-6.7); Neutrophils Percent Auto 57.9 % (45.5-73.1); Platelet Count Result 338 k/mm3 (150-375); Red Blood Count 5.23 M/mm3 (4.2-5.4); Red Cell Distribution Width 14.2 % (11.5-14.5); White Blood Count 8.9 K/mm3 (4.5-10.0)
[2022-01-16 13:17] LABS: Albumin Level 4.2 g/dL (3.5-5.1); Alkaline Phosphatase 104 U/L (38-126); Anion Gap 16 mmol/L (8-16); Aspartate Amino Transferase 58 U/L (14-36); Bilirubin,Total 0.7 mg/dL (0.2-1.3); Blood Urea Nitrogen 13 mg/dL (7-17); Calcium 9.2 mg/dL (8.4-10.2); Carbon Dioxide 19 mmol/L (22-30); Chloride 108 mmol/L (98-107); Estimated CRCL calculation 63 ml/min; Estimated Glomerular Filt Rate > 60; Glucose 155 mg/dL (65-110); Potassium 3.4 mmol/L (3.4-5.0); Sodium 143 mmol/L (137-145)
[2022-01-16 13:19] LABS: Alanine Aminotransferase 56 U/L (6-35)
[2022-01-16 14:13] VITALS: BP 188/88; PULSE 93; RESP 18; O2SAT 100
[2022-01-16 14:15] VITALS: O2SAT 100
[2022-01-16 14:17] VITALS: BP 166/90; O2SAT 100
--- NOTE | 2022-01-16 14:17 | ECG_ITS ---
Measurements Intervals Enigma Rate: 68 P: 16 FL: 190 QRS: 1 QRSD: 94 T: 59 QT: 413 QTc: 441 Interpretive Statements SINUS RHYTHM WITH MARKED SINUS ARRHYTHMIA WANDERING BASELINE ARTIFACT MINIMAL VOLTAGE CRITERIA FOR LVH, CONSIDER NORMAL VARIANT NONSPECIFIC T-WAVE ABNORMALITY BORDERLINE ECG COMPARED TO ECG 01/26/2021 10:03:32 SINUS RHYTHM NOW PRESENT Electronically Signed On 01-16-2022 16:47:49 CDT by Slim Lopez M.D.
--- NOTE | 2022-01-16 14:25 | ED.GENADULT ---
HPI - General Adult General Chief complaint: Unspecified Stated complaint: Needs Hydration From [facility] Time Seen by Provider: 01/16/22 14:06 Source: RN notes reviewed History of Present Illness HPI narrative: Patient presents emergency department from home for weakness. Patient states she has been feeling weak for the past 4 days states is associated with nausea and vomiting with numerous episodes of both over the past 4 days she denies having any documented fever but states she has been feeling hot she denies any chest pain shortness of breath abdominal pain diarrhea or any other symptoms. Patient gone to the urgent care and was recommended come to the ER for further evaluation Related Data Home Medications Medication Instructions Recorded Confirmed cholecalciferol (vitamin D3) 25 1,000 unit PO DAILY 08/05/19 10/30/21 mcg (1,000 unit) tablet (Vitamin D3) omega-3 fatty acids 1,000 mg 1,000 mg PO DAILY 08/05/19 10/30/21 capsule (Fish Oil Concentrate) prednisolone acetate 1 % eye 1 drop LEFT EYE Q12H 08/05/19 10/30/21 drops,suspension vitamin B complex (B 1 tablet PO DAILY 08/05/19 10/30/21 Complex-Vitamin B12 tablet) Medical cannabis 1 dose BYMOUTH PRN Anxiety 12/09/19 10/30/21 apixaban 5 mg tablet (Eliquis) 5 mg PO BID 01/30/21 10/30/21 aspirin 325 mg tablet,delayed 81 mg PO DAILY 01/30/21 10/30/21 release doxycycline hyclate 50 mg capsule 50 mg PO BID 10/30/21 10/30/21 Allergies Allergy/AdvReac Type Severity Reaction Status Date / Time Iodinated Contrast Media Allergy Severe Rash Verified 01/16/22 14:17 Opioids - Morphine Analogues AdvReac Confusion Verified 01/16/22 14:17 Review of Systems Review of Systems: Gen.: Denies fevers or chills ENT: Denies congestion Respiratory: Denies shortness of breath or cough CV: Denies chest pain or palpitations GI: See HPI denies burning, urgency, frequency or hematuria Musculoskeletal: Denies back pain or muscle pain Neuro: Reports weakness Skin: Denies rash Except as documented, all other systems reviewed and negative PMFSH Past Medical History Medical History Abdominal aortic aneurysm (AAA) 3.0 cm to 5.0 cm in diameter in female Acne vulgaris At high risk for falls BMI 33.0-33.9,adult BMI 35.0-35.9,adult Breast cancer screening by mammogram normal mammogram 07/17/2020 Candidiasis of breast Chronic anxiety Chronic atrial fibrillation (01/27/21) Chronic depression Chronic low back pain Chronic neck pain Controlled diabetes mellitus without complication, without long-term current use of insulin Coronary artery disease without angina pectoris Depression Encounter for osteoporosis screening in asymptomatic postmenopausal patient Essential (primary) hypertension Essential tremor Fibromyalgia Fibromyalgia Gait abnormality Hallux valgus, acquired, bilateral Hammertoes of both feet High cholesterol Hx of retinal detachment Left eye 2011 and 2012 Hypertension Mixed hyperlipidemia Jimenez's neuroma of both feet 1981 [place], [place] Obesity (BMI 30.0-34.9) Osteopenia after menopause DEXA bone density 05/26/2020 with normal T-score of 2.3 at the spine, 0.5 left hip, 0.8 right hip Polyp of colon Vitamin B12 deficiency anemia Vitamin D deficiency, unspecified Surgical History Surgical History History of ankle surgery Broken Ankle [address] [facility] [address] Ho History of back surgery Hx of cataract surgery Left eye 2012 Right Eye 2011, 2012 Hx of cholecystectomy 1996 [place] Hx of cornea transplant Left eye partial Cornea transplant 2014 Hx of hammer toe correction 2007 [facility] Hx of total knee replacement Left & Right Knee June 2016 & August 2016 [facility], [address]. Gavin Botello Family History Family History Father Reji
[2022-01-16 14:45] LABS: INR 1.1; Prothrombin Time 14.2 Seconds (11.1-14.7)
[2022-01-16 14:46] LABS: Partial Thromboplastin Time 26.1 SECONDS (22.3-36.8)
[2022-01-16] MEDS: SODIUM CHLORIDE 0.9% IV 1,000 ML 999 ML IV CONT (14:48)
[2022-01-16 15:51] LABS: Appearance Urine Slightly Cloudy (Clear); Bilirubin Urine 2+ (Negative); Blood Urine Negative (Negative); Color Urine Yellow (Yellow); Glucose Urine UA Negative (Negative); Ketones Urine 1+ mg/dL (Negative); Leukocyte Esterase Ur Negative LEU/UL (Negative); Nitrate Urine Negative (Negative); Protein Urine 2+ mg/dL (Negative); Specific Grav Ur >= 1.030 (1.001-1.035); pH Urine 5.5 (5.0-9.0)
[2022-01-16 16:11] LABS: Bacteria Urine Trace /hpf; Calcium Oxalate Crystals Urine Present /hpf; Mucus Urine Heavy /lpf; RBC Urine 51-75 /hpf (0-2); Squamous Epithelial Cell Urine Occasional /hpf (Few)
[2022-01-16 16:12] LABS: Add Urine Microscopic? YES
[2022-01-16 16:29] LABS: Influenza A QL RT-PCR Negative (Negative); Influenza B QL RT-PCR Negative (Negative); SARS-CoV-2 RNA PCR Negative
--- NOTE | 2022-01-16 17:41 | PC.NURSE ---
Tolerated crackers and clear soda without emesis.
[2022-01-16 18:43] LABS: Lipase 124 U/L (23-300)
== END 2022-01-16 18:56 | disposition home or self-care (01) ==
PROVIDERS: Emergency Provider Emergency Medicine; PCP Family Medicine
DX: R11.2 Nausea with vomiting, unspecified (principal); Z20.822 Contact with and (suspected) exposure to COVID-19; I48.91 Unspecified atrial fibrillation; F41.9 Anxiety disorder, unspecified; F32.9 Major depressive disorder, single episode, unspecified; E11.9 Type 2 diabetes mellitus without complications; Z79.4 Long term (current) use of insulin; I10 Essential (primary) hypertension; E78.5 Hyperlipidemia, unspecified; M79.7 Fibromyalgia
CPT/HCPCS: 36415; 51701; 71045; 74176; 80053; 81001; 83690; 85025; 85610; 85730; 87086; 87502; 93005; 96360; 96361; 99284; C9803; J7030; U0003; U0005

== ENCOUNTER 2022-11-18 10:24 | Outpatient (CLI) | payer MEDICARE, OTHER, SELFPAY ==
--- NOTE | ~2022-11-18 | XR_ITS ---
EXAMINATION: XR barium swallow DATE: 11/18/2022 11:14 INDICATION: Dysphagia with occasional sensation of something stuck in the region of the neck with s wallows. TECHNIQUE: The patient drank thick barium, gas-producing crystals, and thin barium. Fluoroscopic spot radiographs of the hypopharynx and esophagus were obtained. A total of 1030 fluoroscopic images were recorded Fluoroscopy exposure time was 2.3 minutes. Total DAP was 9.228 Gycm^2 COMPARISON: None. FINDINGS: The pharynx is symmetric and without evidence of mass lesion or mucosal irregularity. There is mass effect upon the posterior wall of the hypopharynx resulting from prominent anterior endplate osteophytes C4-C5 with anterior fusion at C3-C4. There is weakening of the primary peristaltic wave with superimposed tertiary contractions in the distal esophagus. There is persistent mild relative na rrowing of the distal 4-5 cm the esophagus with smooth mucosal surface. There is no hiatal hernia. Th ere was no gastroesophageal reflux with provocative maneuvers. IMPRESSION: 1. Nonspecific persistent mild relative narrowing of the distal 4-5 cm of the esophagus. No evident a ssociated mucosal irregularity to more specifically elevate concern for malignancy but would consider endoscopy for further evaluation. 2. Prominent anterior endplate osteophytes at C4-C5 which exerts mass effect upon the posterior wall of the hypopharynx. Reviewed, dictated and finalized at location A. IMPRESSION: 1. Nonspecific persistent mild relative narrowing of the distal 4-5 cm of the e sophagus. No evident associated mucosal irregularity to more specifically eleva te concern for malignancy but would consider endoscopy for further evaluation. 2. Prominent anterior endplate osteophytes at C4-C5 which exerts mass effect up on the posterior wall of the hypopharynx.
== END 2022-11-18 10:25 | disposition home or self-care (01) ==
LOC: ANHIMG 10:26
PROVIDERS: PCP Family Medicine; Visit Provider Family Medicine
DX: K22.2 Esophageal obstruction (principal); M25.78 Osteophyte, vertebrae
CPT/HCPCS: 74220

== ENCOUNTER 2023-01-03 01:09 | Day surgery (SDC) | payer MEDICARE, OTHER, SELFPAY ==
[2022-12-26 14:56] VITALS: BMI 31.3
--- NOTE | 2022-12-26 15:32 | PC.NURSE ---
Report to the Outpatient Waiting Room, entrance under the green pavilion located off [facility], at time __8:00AM on date __01/03/23 . Planned Procedure Time: __10:00AM . Time changes happen often and if your time is changed the preop area will call you the afternoon before. - You and your visitor will be asked to self-screen and do not enter if you have any COVID symptoms. - A mask is optional within the hospital at this time. Patients may have clear liquids (water, carbonated beverages, clear teas, apple juice) until 3 hours prior to surgery with a maximum of 20 ounces. - No food from midnight until time of surgery Take the following medications with a SIP of water the morning of surgery: ___DIAZEPAM, DULOXETINE, PREGABALIN, PROPRANOLOL, EYE DROPS____ DO NOT STOP ANY OF YOUR OTHER PRESCRIPTION MEDICATIONS PRIOR TO SURGERY ?EXCEPT THE FOLLOWING Medications to discontinue per physician ___HOLD ASPIRIN PER DR MCDONALD (PT AND STATE THEY WILL CALL OFFICE). HOLD ALL VITAMINS/SUPPLEMENTS 3 DAYS PRE-OP PER ANESTHESIA- Date to take last dose___12/30/22 Please no make-up, nail greek, hairspray, perfume, deodorant, or body powder the day of surgery. No jewelry (including any body piercings) or valuables the day of surgery, leave them at home. Please take a shower or bath the night before, or the morning of, surgery with an antibacterial soap. Wear comfortable, loose fitting clothing. Children are encouraged to wear pajamas. - Jewelry must be removed prior to entering the operating room. Rings and piercings that are not removed may be cut off. - The hospital will not accept responsibility for valuables. - Please leave all valuables, including medications, at home the day of surgery. If you are going home after surgery, a licensed hazmat truck driver must drive you home. - NO public transportation without another adult if you receive anesthesia. - We recommend that an adult stay with you for 24 hours following discharge. - We also recommend that you do not drive, make important decision, drink alcoholic beverages, or take any drugs that were not prescribed by your health care provider for at least 24 hours after your discharge time. Follow any additional instructions given to you from your surgeon. If you or anyone in your household have experienced Covid symptoms in the past week, please notify your surgeon or the nurse liaison at the phone number below for possible testing. Telephone instructions given to _PATIENT AND HUSBAND and asked if any additional questions and then verbalized understanding. Patient advised to call surgeon office or pre surgery nurse liaison [phone] if any additional questions.
--- NOTE | 2023-01-02 14:40 | WPDANESEPPF ---
Anes - Initial Pre Proc Eval Procedure: Operation Date: 01/03/23 10:00 Proposed Procedures p Arthrodesis of First Metatarsal Phalangeal Joint Left Foot - Jose Bay JR, MD Date/Time: 01/02/23 14:40 Surgeon: Jose Bay JR, MD Pre Op Diagnosis: Arthritis 1st MPJ Left Foot Patient Data Age: 77 Gender: F Height: 1.68 m Weight: 88 kg Allergies Allergy/AdvReac Type Severity Reaction Status Date / Time Iodinated Contrast Media Allergy Severe Rash, Verified 12/26/22 14:40 SHORTNESS OF BREATH Opioids - Morphine Analogues AdvReac Confusion, Verified 12/26/22 14:40 VOMITING Home Medications Medication Instructions Recorded Confirmed Type cholecalciferol (vitamin D3) 25 1,000 unit PO DAILY 08/05/19 12/26/22 History mcg (1,000 unit) tablet (Vitamin D3) omega-3 fatty acids 1,000 mg 1,000 mg PO DAILY 08/05/19 12/26/22 History capsule (Fish Oil Concentrate) prednisolone acetate 1 % eye 1 drop LEFT EYE Q12H 08/05/19 12/26/22 History drops,suspension vitamin B complex (B 1 tablet PO DAILY 08/05/19 12/26/22 History Complex-Vitamin B12 tablet) Medical cannabis 1 dose BYMOUTH TID PRN Anxiety 12/09/19 12/26/22 History nystatin 100,000 unit/gram topical 1 applic topical BID #30 grams 05/30/21 12/26/22 Rx cream diazepam 2 mg tablet 2 mg PO BID PRN anxiety #180 tabs 08/16/21 12/26/22 Rx hydroxyzine pamoate 25 mg capsule 25 mg PO TID PRN itching #30 caps 02/06/22 12/26/22 Rx (Vistaril) duloxetine 60 mg capsule,delayed 60 mg PO BID #180 caps 06/07/22 12/26/22 Rx release (Cymbalta) tolterodine 4 mg capsule,extended 4 mg PO DAILY 08/06/22 12/26/22 History release 24 hr metformin 500 mg tablet,extended 1,000 mg PO BID #360 tabs 08/07/22 12/26/22 Rx release 24 hr atorvastatin 20 mg tablet 20 mg PO DAILY #90 tabs 10/08/22 12/26/22 Rx cyclobenzaprine 5 mg tablet 5 mg PO TID PRN Muscle Spasm 12/09/22 12/26/22 History pregabalin 100 mg capsule (Lyrica) 100 mg PO BID #180 caps 12/16/22 12/26/22 Rx allopurinol 100 mg tablet 100 mg PO TID 12/26/22 12/26/22 History aspirin 81 mg tablet,delayed 81 mg PO DAILY 12/26/22 12/26/22 History release latanoprost 0.005 % eye drops 1 drp EACH EYE BID 12/26/22 12/26/22 History propranolol 80 mg capsule,extended 80 mg PO QAM 12/26/22 12/26/22 History release 24 hr telmisartan 80 1 tablet PO QAM 12/26/22 12/26/22 History mg-hydrochlorothiazide 12.5 mg tablet Patient hx anesthesia problems: none Family hx anesthesia problems: none Results Review: All pre-operative results and documents have been reviewed as part of the pre-operative evaluation. [facility] Past Medical History Medical History (Updated 01/02/23 @ 14:46 by Nico Sargent MD) Acne vulgaris Aortic aneurysm, intrathoracic 4.6 cm ascending aortic aneurysm on CT 08/2013 At high risk for falls Breast cancer screening by mammogram normal mammogram 07/17/2020 Candidiasis of breast Chronic anxiety Chronic atrial fibrillation (01/27/21) Chronic depression Chronic low back pain Chronic neck pain Controlled diabetes mellitus without complication, without long-term current use of insulin Glucose 93 with hemoglobin A1c 5.6 on 07/30/2022. Coronary artery disease without angina pectoris Depression Essential (primary) hypertension Essential tremor Much improved with brain stimulator right side 07/24/2021 and left side on 08/27/2022. Fibromyalgia Gait abnormality Hallux valgus, acquired, bilateral Hammertoes of both feet High cholesterol Hx of retinal detachment Left eye 2011 and 2012 Hypertension Mixed hyperlipidemia total cholesterol 194, triglycerides 86, HDL 51, LDL 124 on 07/30/2022. Jimenez's neuroma of both feet 1982 [place], [place] Nausea and vomiting CT of the brain of the 01/25/2022 was unremarkable. No obvious reason for nausea and vomiting. Obesity (BMI 30-39.9) CLYDE on CPAP (~10/07/19) Severe CLYDE on home sleep study on 10/07/2019 with A
--- NOTE | 2023-01-02 14:49 | WPDANESPNB ---
Anes - Peripheral Nerve Block Date/Time: 01/02/23 14:49 I have discussed with the patient/family/POA the placement of a peripheral nerve block for post-operative pain management, including associated risks, benefits, complications, and side effects. Alternative methods of post-operative analgesia were detailed. Questions were solicited and answers provided to the satisfaction of the patient/family/POA. Time-Out: A pre-procedural Time-Out was completed immediately before starting the procedure and confirmed: Patient Identification, Site, Procedure, Patient Position and the Availability of Requisite Equipment. Clinical Indications: Acute post-operative pain management requested by the operative surgeon. Nerve Block Insertion Note Anes-nerve block: posterior fossa sciatic (20cc) left Patient position: supine Skin prep: chlorhexidine Needle: 22 gauge, stimulating, insulated echogenic needle. Needle length: 80 mm Technique: ultrasound (in plane) Injectate: bupivacaine 0.25% with epi 5 mcg/ml (20cc) Observations: tolerated well Complications: none Procedure start time:: 940 Procedure end time:: 945
[2023-01-03] VITALS (8 sets, daily range): BP systolic 109–131; BP diastolic 59–70; PULSE 59–67; RESP 12–16; TEMP 36.3–36.4; O2SAT 16–100
--- NOTE | ~2023-01-03 | XR_ITS ---
XR surgery orthopedic DATE: 01/03/2023 10:45 INDICATION: Arthrodesis TECHNIQUE: Spot AP and lateral views of the forefoot 4 seconds fluoroscopy time 0.3483 cGycm2 total DAP COMPARISON: None FINDINGS: Plate and screws extend dorsally from the distal shaft of the first metatarsal bone to the mid shaft of the proximal phalanx of the first digit. IMPRESSION: Status post arthrodesis at first metatarsophalangeal joint Reviewed, dictated and finalized at Location [facility]. Reviewed, dictated and finalized at location []
--- NOTE | 2023-01-03 07:11 | WPDHPUPDATE1 ---
History and Physical Update Update Date/Time: 01/03/23 07:11 History and Physical has been reviewed, including an updated exam of the patient. There are NO changes in the patient's condition. Risks, benefits, and alternatives have been discussed and questions answered. Patient agrees to proceed with procedure.
[2023-01-03 08:56] LABS: Glucose Point of Care 108 mg/dl (65-105)
[2023-01-03] MEDS: LACTATED RINGERS 1,000 ML 30 ML IV CONT (09:00)
--- NOTE | 2023-01-03 09:05 | PM.IMHP ---
H&P: [facility] History of Present Illness Date/Time: 01/03/23 09:05 Chief Complaint: Painful left forefoot Narrative: The patient has chronic pain to the first metatarsal phalangeal joint with a history of gout. She is requesting correction of her bunion deformity and arthritis of the joint to relieve chronic pain. Review of Systems Review of Systems: All systems reviewed & are unremarkable except as noted in HPI and below [facility] Past Medical History Medical History (Updated 01/03/23 @ 09:11 by Jose Bay JR, MD) Acne vulgaris Aortic aneurysm, intrathoracic 4.6 cm ascending aortic aneurysm on CT 08/2013 At high risk for falls Breast cancer screening by mammogram normal mammogram 07/17/2020 Candidiasis of breast Chronic anxiety Chronic atrial fibrillation (01/27/21) Chronic depression Chronic low back pain Chronic neck pain Controlled diabetes mellitus without complication, without long-term current use of insulin Glucose 93 with hemoglobin A1c 5.6 on 07/30/2022. Coronary artery disease without angina pectoris Depression Essential (primary) hypertension Essential tremor Much improved with brain stimulator right side 07/24/2021 and left side on 08/27/2022. Fibromyalgia Gait abnormality Hallux valgus, acquired, bilateral Hammertoes of both feet High cholesterol Hx of retinal detachment Left eye 2011 and 2012 Hypertension Mixed hyperlipidemia total cholesterol 194, triglycerides 86, HDL 51, LDL 124 on 07/30/2022. Jimenez's neuroma of both feet 1981 [place], [place] Nausea and vomiting CT of the brain of the 01/25/2022 was unremarkable. No obvious reason for nausea and vomiting. Obesity (BMI 30-39.9) CLYDE on CPAP (~10/07/19) Severe CLYDE on home sleep study on 10/07/2019 with AHI of 40.8 with CPAP titration 04/16/2020 with 11 cm water pressure with AirFit N20 nasal mask. Osteopenia after menopause DEXA bone density 05/26/2020 with normal T-score of 2.3 at the spine, 0.5 left hip, 0.8 right hip Polyp of colon multiple polyps on colonoscopy 05/11/2020 with recheck in 5 years. 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 Renal mass, left (~01/16/22) 8 mm exophytic superior pole left renal mass on CT 01/16/2022. Urinary incontinence treated by urologist UTI (urinary tract infection) Vitamin B12 deficiency anemia Normal at 862 with hemoglobin 15.2 Vitamin D deficiency, unspecified Level at 30 on 07/30/2022. Surgical History Surgical History History of ankle surgery Broken Ankle [address] [facility] [address] Ho History of back surgery Hx of cataract surgery Left eye 2012 Right Eye 2011, 2012 Hx of cholecystectomy 1996 [place] Hx of cornea transplant Left eye partial Cornea transplant 2014 Hx of hammer toe correction 2007 [facility] Hx of total knee replacement Left & Right Knee June 2016 & August 2016 [facility], Dr. Gavin Botello Family History Family History Father Heart disease Other Diabetes mellitus Hypertension Social History Social History Smoking status: Never smoker Alcohol intake: current Alcohol use details: Wine or Gin but rarely Substance use: current Substance use type: marijuana Other substance usage details: MARIJUANA PILLS TID Lack of Transportation: No Lack of Food: Never True Current Housing: I Have Housing Concerned About Future Housing: No Difficulty Paying Gas/Electric Bills: No Difficulty Paying for Meds: No Currently Unemployed: No Education: Master's Degree or Higher Difficulty w/ Childcare or Family Care: No Living arrangements: with family Additional living arrangements comments: HUSB Gender identity (if verbalized by the patient)
[2023-01-03] MEDS: ceFAZolin 2 GM/D5W 50 ML 2 GM/50 ML BAG IVPB (09:47)
--- NOTE | 2023-01-03 10:52 | W.PM.PROC2 ---
Procedure Note - Detailed Date of Procedure 01/03/23 Pre-op Diagnosis Arthritis 1st metatarsal phalangeal joint Left Foot Post-op Diagnosis Same Procedure Performed Arthrodesis of the first metatarsal phalangeal joint left foot Surgeon Jose Bay JR, OSKAR Anesthesia General and Regional Description of Procedure PROCEDURE IN DETAIL: Under mild sedation, the patient was brought into the operating room, placed on the operating table in supine position. A pneumatic ankle tourniquet was placed about the patient's ipsilateral ankle. Following general anesthesia and a popliteal fossa block, the foot was then scrubbed, prepped, and draped in the usual aseptic manner. An Esmarch bandage was then used to exsanguinate the patient's foot and the pneumatic ankle tourniquet was then inflated. Surgery began in the following manner: Attention was directed to the dorsal medial aspect of the 1st metatarsophalangeal joint where there was a hallux valgus deformity noted with a prominent first metatarsal phalangeal joint dorsal medially. The incision was made starting along the central shaft of the 1st metatarsal and extending just proximal to the interphalangeal joint of the hallux. The incision was continued deep down through the subcutaneous tissues using sharp and blunt dissection. All bleeders were cauterized as necessary. At this point, the dissection was continued down to the level of the periosteum and capsular structures overlying the 1st metatarsophalangeal joint. A full length periosteum and capsular incision was made just medial to the extensor hallucis longus tendon. The periosteum and capsular structures were freed from the base of the proximal phalanx as well as the distal 1st metatarsal. At this point, the 1st metatarsophalangeal joint was identified. There was loss of articular cartilage to the head of the 1st metatarsal as well as the base of the proximal phalanx worse medially. There was broadening and hypertrophy of the 1st metatarsophalangeal joint. Utilizing a sagittal bone saw, the hypertrophied 1st metatarsal was resected dorsally, medially, and laterally. A power bur was used to make sure that there were no rough edges and also to further debride the hypertrophic 1st metatarsal. Next, a rongeur was used to resect the hypertrophic base of the proximal phalanx. At this point, the reamer system for the iAmplify system was used to denude the degenerative cartilage from the head of the 1st metatarsal as well as the base of the proximal phalanx. The cartilage and subchondral bone were fully debrided utilizing the reamer system until healthy bleeding bone was noted. I flushed the surgery site with copious amounts of sterile saline. Next, a 2-0 drill bit was used to further fenestrate the head of the 1st metatarsal as well as the base of the proximal phalanx in order to allow fusion across the 1st metatarsophalangeal joint. Next, a 0.045 inch K-wire was driven from the medial aspect of the base of the proximal phalanx into the head of the 1st metatarsal in order to serve as temporary fixation. A large steel plate was used to make sure that the hallux was in a rectus position both in the sagittal plane as well as the frontal and transverse plane. Excellent position of the hallux was noted. Next, a CrossCHECK plate was placed atop the 1st metatarsophalangeal joint held in position with [place] wires. Utilizing standard principles and techniques, the 2 distal drill holes were drilled and one 3.5mm non locking and one 2.7mm mm fully-threaded locking screws were driven from dorsal to plantar holding the distal aspect of the plate intact. At this point, a 3.5mm lag screw was driven from dorsal distal to proximal plantar across the 1st metatarsophalangeal joint through the plate system with excellent compression noted after careful removal of the olive wire and temporary fixation from the 1st metatarsophalangeal joint. N
[2023-01-03 11:29] LABS: Glucose Point of Care 97 mg/dl (65-105)
== END 2023-01-03 13:15 | disposition home or self-care (01) ==
PROVIDERS: PCP Family Medicine; Visit Provider Podiatrist Foot & Ankle Surgery
PROC: (CPT 28750; principal; 2023-01-03 10:00)
DX: M21.612 Bunion of left foot (principal); M19.072 Primary osteoarthritis, left ankle and foot; G89.18 Other acute postprocedural pain; M10.9 Gout, unspecified; I71.20 Thoracic aortic aneurysm, without rupture, unspecified; I48.20 Chronic atrial fibrillation, unspecified; I10 Essential (primary) hypertension; E78.2 Mixed hyperlipidemia; G47.33 Obstructive sleep apnea (adult) (pediatric); F41.9 Anxiety disorder, unspecified; E11.9 Type 2 diabetes mellitus without complications; I25.10 Atherosclerotic heart disease of native coronary artery without angina pectoris; G25.0 Essential tremor; F32.A Depression, unspecified; M85.80 Other specified disorders of bone density and structure, unspecified site; D51.3 Other dietary vitamin B12 deficiency anemia; E55.9 Vitamin D deficiency, unspecified; M79.7 Fibromyalgia; E66.9 Obesity, unspecified; Z68.33 Body mass index [BMI] 33.0-33.9, adult; F12.90 Cannabis use, unspecified, uncomplicated; Z79.84 Long term (current) use of oral hypoglycemic drugs; Z79.82 Long term (current) use of aspirin
CPT/HCPCS: 28750; 64445; 82948; 99199; C1713; J0690; J2250; J2405; J2704; J3010; J7120

== ENCOUNTER → 2024-06-02 11:35 | Outpatient (CLI) | payer MEDICARE, OTHER, SELFPAY ==
--- NOTE | ~2024-06-02 | XR_ITS ---
Right Shoulder Technique: AP and axillary views were obtained. Clinical History: Pain Findings: No fracture or dislocation is seen. There is severe glenohumeral joint osteoarthritic joint space narrowing and large inferomedial humeral head osteophyte. There is advanced AC joint degenerat ani change with large subacromial spur.. Soft tissues are unremarkable. Impression: Severe degenerative change of the glenohumeral and AC joints, as above. Reviewed, dictated and finalized at location M. ER SUBSTANDARD Impression: Severe degenerative change of the glenohumeral and AC joints, as above.
--- NOTE | ~2024-06-02 | XR_ITS ---
Left Shoulder Technique: AP and scapular Y views were obtained. Clinical History: Pain Findings: No fracture or dislocation is seen. Osseous alignment is anatomic. The glenohumeral joint d emonstrate moderate degenerative change, with inferomedial humeral head osteophyte. There is moderate AC joint degenerative change. Probable loose body the anterior aspect of the joint, seen on axillary view, measuring 12 mm in diameter.. Impression: Moderate degenerative change of the glenohumeral and AC joints. Probable loose body, as above. Reviewed, dictated and finalized at location M. [employer] Impression: Moderate degenerative change of the glenohumeral and AC joints. Probable loose body, as above.
== END ==
PROVIDERS: PCP Family Medicine; Visit Provider Family Medicine
DX: M19.012 Primary osteoarthritis, left shoulder (principal); M19.011 Primary osteoarthritis, right shoulder
CPT/HCPCS: 73030

== ENCOUNTER 2025-03-31 09:55 | Outpatient (CLI) | payer MEDICARE, OTHER, SELFPAY ==
--- NOTE | ~2025-03-31 | DEXA_ITS ---
Bone Density Report Name: JE MERCADO Age: 79 Sex: Female Ethnicity: White Date of : 1945 Indication: postmenopausal; screening for osteoporosis; height loss; seizure disorder; Referring Provider: EULALIA SANTIAGO Study: Bone densitometry was performed. Exam Date: March 31, 2025 Accession number: [id number] Bone Density: Region BMD T-score Z-score Classification AP Spine(L1, L2) 1.325 3.1 5.6 Normal Femoral Neck (Left) 0.885 0.3 2.5 Normal Total Hip (Left) 0.931 -0.1 1.8 Normal Femoral Neck (Right) 0.836 -0.1 2.1 Normal Total Hip (Right) 0.885 -0.5 1.5 Normal Total Hip Mean 0.908 -0.3 1.7 Normal World Health Organization criteria for BMD impression classify patients as: Normal (T-score at or above -1.0), Osteopenia (T-score between -1.0 and -2.5), or Osteoporosis (T-score at or below -2.5). 10-year Fracture Risk: FRAX not reported because: All T-scores for Spine Total, Hip Total, Femoral Neck at or above -1.0 Previous Exams: -- Region Exam Age BMD T-score BMD Change BMD Change Date g/cm2 vs Baseline vs Previous -- AP Spine (L1-L2) 03/31/2025 79 1.325 3.1 7.4%* 7.4%* 05/26/2020 75 1.234 2.3 Total Hip(Left) 03/31/2025 79 0.931 -0.1 -7.3%* -7.3%* 05/26/2020 75 1.005 0.5 Total Hip(Right) 03/31/2025 79 0.885 -0.5 -9.9%* -9.9%* 05/26/2020 75 0.982 0.3 -- *Denotes significance at 95% confidence level, LSC for AP Spine = 0.022 g/cm2, LSC for Total Hip = 0.027 g/cm2 Clinical Information Provided by Patient: Has the following medical conditions: Any Seizure Disorders Patient maximum height was 67 Menopause Age: 57 No regular weight bearing exercise Onset of menses at age 10 Number of children 0 Impression: The patient has normal bone mass. The BMD for the Total Hip(Left) decreased, changing by -7.3% since the last DXA exam. The BMD for the Total Hip(Right) decreased, changing by -9.9% since the last DXA exam. Discussion: BONE DENSITY IS ABOVE THE MINIMUM DESIRABLE LEVEL AT ALL SKELETAL SITES TESTED. This patient?s bone mineral density is above the minimum desirable level (T-score -1.0 or better) at all sites measured. The patient should follow a healthful lifestyle (good nutrition with adequate calcium and vitamin D, and appropriate weight-bearing exercise). Follow-Up: Consider repeating this study in 3 to 4 years to reassess this patient's status, or sooner if there is some new clinical indication. Reported by: NIKHIL on 03/31/2025 10:29:00 AM. Reviewed, dictated and finalized at location A.
== END 2025-03-31 09:56 | disposition home or self-care (01) ==
LOC: MICIMG 09:56
PROVIDERS: PCP Family Medicine; Visit Provider Family Medicine
DX: Z78.0 Asymptomatic menopausal state (principal)
CPT/HCPCS: 77080